=== PATIENT | female | born 2000 | race Caucasian/White ===

== ENCOUNTER 2021-12-01 09:29 | Emergency (ER) | payer OTHER ==
[2021-12-01 09:46] VITALS: BP 118/70; PULSE 89; TEMP 98.4; BMI 31.0
== END 2021-12-01 11:10 | disposition home or self-care (01) ==
LOC: JERFT 09:29 → JER 09:29 → JERFT 11:10
DX: M54.50 Low back pain, unspecified (principal)
CPT/HCPCS: 99281-25

== ENCOUNTER 2021-12-15 16:08 | Emergency (ER) | payer OTHER ==
[2021-12-15 16:31] VITALS: BP 121/61; PULSE 70; TEMP 98; BMI 26.6
== END 2021-12-15 16:45 | disposition home or self-care (01) ==
LOC: JERFT 16:08
DX: R21 Rash and other nonspecific skin eruption (principal)
CPT/HCPCS: 99282-25

== ENCOUNTER 2022-03-26 23:25 | Emergency (ER) | payer OTHER ==
[2022-03-27 00:08] VITALS: BP 113/72; PULSE 74; TEMP 98.4; BMI 29.7
[2022-03-27] MEDS ORDERED: LIDOCAINE 5% TOPICAL PATCH TP ONE (00:26)
[2022-03-27] MEDS ORDERED: ACETAMINOPHEN 325 MG TABLET (FP) PO ONE (00:26)
[2022-03-27] MEDS ORDERED: ACETAMINOPHEN 325 MG TABLET (FP) ONE (00:39)
[2022-03-27] MEDS ORDERED: LIDOCAINE 5% TOPICAL PATCH ONE (00:39)
[2022-03-27 01:07] LABS: EPI CELLS 28 /uL (0-25.1); HYALINE CASTS 2 /uL (0-3.1); PH,URINE 6.5 (5.0-8.0); URINE APPEARANCE CLOUDY; URINE BACTERIA 1045 /uL (0-1359); URINE BILIRUBIN NEGATIVE (NEGATIVE); URINE COLOR YELLOW; URINE GLUCOSE (UA) NEGATIVE (NEGATIVE); URINE KETONE NEGATIVE (NEGATIVE); URINE LEUK ESTERASE 2+ (NEGATIVE); URINE NITRITE NEGATIVE (NEGATIVE); URINE PROTEIN NEGATIVE (NEGATIVE); URINE RBC 6 /uL (0-23.9); URINE UROBILINOGEN 0.2 mg/dL (0.2-1.0); URINE WBC 128 /uL (0-25.8)
[2022-03-27] MEDS ORDERED: KETOROLAC TROMETHAMINE 30 MG/1 ML VIAL IM ONE (01:26)
[2022-03-27 01:57] LABS: EPI CELLS >36 /uL (0-25.1); HYALINE CASTS 10 /uL (0-3.1); URINE APPEARANCE TURBID; URINE BACTERIA >9,000 /uL (0-1359); URINE BILIRUBIN NEGATIVE (NEGATIVE); URINE COLOR YELLOW; URINE GLUCOSE (UA) NEGATIVE (NEGATIVE); URINE KETONE TRACE (NEGATIVE); URINE LEUK ESTERASE 2+ (NEGATIVE); URINE NITRITE NEGATIVE (NEGATIVE); URINE PROTEIN 2+ (NEGATIVE); URINE WBC 5260 /uL (0-25.8)
[2022-03-27] MEDS ORDERED: SULFAMETHOXAZOLE/TRIMETHOPRIM 800MG/160MG D.S. TABLET PO ONE (02:08)
[2022-03-27 04:59] LABS: YEAST NONE SEEN (NEGATIVE)
[2022-03-27] MEDS ORDERED: LIDOCAINE PATCH REMOVAL MC ONE (12:00)
== END 2022-03-27 02:37 | disposition home or self-care (01) ==
LOC: JER 23:25
PROC: 3E0233Z Introduction of Anti-inflammatory into Muscle, Percutaneous Approach (ICD-10-PCS; principal; 2022-03-26)
DX: N10 Acute pyelonephritis (principal); M54.50 Low back pain, unspecified; G89.29 Other chronic pain
CPT/HCPCS: 81003; 84703; 87086; 99284-25